=== PATIENT | female | born 1990 | race Caucasian/White ===

== ENCOUNTER 2016-10-18 20:32 | Inpatient (IN) | payer MEDICAID, OTHER ==
[2016-10-18 20:41] VITALS: BMI 50.2
[2016-10-18] MEDS ORDERED: Penicillin G 5 Million Unit Vial IVPB ONE (21:17)
--- NOTE | 2016-10-18 21:33 | OBADHP ---
Datetime: 10/18/2016 21:16 Admit Comment, IP Provider: chief complaint-post term HPI 26 y/o at 40.4 wga here for scehduled induction of labor.patient denies vaginal bleeding, loss of fluid corse complicated by obesity; late to care PMH denies PSH sleeve gastrectomy OBGYN HX Social hx denies tobacco,alcohol or illicit drug use Exam see exam section A/P 26 y/o at 40.4 wga here for scheduled indcution of labor -admit -see orders -cervidil placed dr roper aware Pelvic Type - PN: Adequate Extremities - PN: Normal Abdomen - PN: Normal Back - PN: Normal Breast - PN: Normal Lungs - PN: Normal Heart - PN: Normal Neurologic - PN: Normal HEENT - PN: Normal General - PN: Normal Weight - Estimated: 3400 Presentation-Admit: Vertex Contraction Comments Provider: none Gestation - Est Wks by US: 40.4 IP Hx Assessment: The History has been Reviewed and is Current Vital Signs Provider: Reviewed; Within Normal Limits IP Chief Complaint: Scheduled induction of labor FHR Category Provider Fetus A: Category I Dilatation, Provider: 0 Effacement, Provider: 40 Station, Provider: -3 Genitourinary Exam: Normal DTRs - PN: Normal EGA AdmitDate IP: 40.4 IP Adm Impression: Postterm, intrauterine ; No Active Labor IP Admit Plan: Admit to unit; Initiate labor induction protocol
[2016-10-18] MEDS: Lactated Ringer's 1,000 ML IV SCH (21:50)
[2016-10-18 21:56] LABS: BASO # 0.1 K/uL (0.0-0.2); BASO % 0.4 % (0.0-2.0); EOS # 0.3 K/uL (0.0-0.7); EOS % 2.2 % (0.0-4.0); HEMATOCRIT 30.9 % (34.0-47.0); LYMPH # 3.3 K/uL (1.0-4.3); LYMPH % 21.1 % (20.0-40.0); MEAN CELL VOLUME 77.7 fL (81.0-99.0); MEAN CORPUSCULAR HEMOGLOBIN 25.4 pg (27.0-31.0); MEAN CORPUSCULAR HGB CONC 32.6 g/dL (33.0-37.0); MEAN PLATELET VOLUME 8.4 fL (7.2-11.7); MONO % 6.1 % (0.0-10.0); RED CELL DISTRIBUTION WIDTH 14.9 % (11.5-14.5); WHITE BLOOD COUNT 15.9 K/uL (4.8-10.8)
[2016-10-18 22:04] LABS: CHLORIDE 102 mmol/L (98-107); SODIUM 133 mmol/L (132-148)
[2016-10-18 22:05] LABS: POTASSIUM 3.7 mmol/L (3.6-5.2)
[2016-10-18 22:06] LABS: RBC URINE 15 /hpf (0-3); URINE BILIRUBIN NEGATIVE (NEGATIVE); URINE BLOOD 1+ (NEGATIVE); URINE CALCIUM OXALATE CRYSTALS MANY /hpf (<OCC); URINE COLOR Yellow (YELLOW); URINE GLUCOSE (UA) NORMAL (Normal); URINE KETONE NEGATIVE (NEGATIVE); URINE LEUKOCYTE ESTERASE 2+ Leu/uL (Negative); URINE PROTEIN NEGATIVE (NEGATIVE); URINE UROBILINOGEN NORMAL mg/dL (0.2-1.0); WBC URINE 27 /hpf (0-5)
[2016-10-18 22:07] LABS: ALB/GLOB RATIO 0.8 (1.0-2.1); ALKALINE PHOSPHATASE 120 U/L (38-126); ALT/SGPT 37 U/L (9-52); AST/SGOT 24 U/L (14-36); BLOOD UREA NITROGEN 13 mg/dL (7-17); CARBON DIOXIDE 22 mmol/L (22-30); GFR AFRICAN-AMERICAN > 60; GLUCOSE,RANDOM 89 mg/dL (65-105); TOTAL PROTEIN 7.2 g/dL (6.3-8.3)
[2016-10-18 22:08] LABS: CALCIUM 8.9 mg/dl (8.6-10.4)
[2016-10-19] MEDS ORDERED: Nalbuphine 20 mg/ml Inj (1 ml) ONE ×2 (03:00→09:28)
[2016-10-19] MEDS ORDERED: Nalbuphine 20 mg/ml Inj (1 ml) IVP PRN ×2 (03:30→09:00)
--- NOTE | 2016-10-19 13:13 | OBPN ---
Datetime: 10/19/2016 13:06 IP Progress Impression: Normal progression of labor; Reassuring heart rate IP Procedures: Sterile Vag Exam IP Progress Plan: Cervical Ripening Membranes, Provider: Intact Contraction Comments Provider: irregular FHR - Baseline A Provider: 130 Gestation - Est Wks by US: 40.5 Presentation-Admit: Vertex IP Progress Note Comment: IUP at 40.5wks Reassuring heart Tracing Rate. Plan: Continue present management. NICHD Accel Fetus A IP Provider: 15X15 FHR Category Provider Fetus A: Category I NICHD Variability Prov Fetus A: Moderate 6-25bpm Dilatation, Provider: 1-2 Effacement, Provider: 40-50 Station, Provider: -3 NICHD Decel Fetus A IP Provider: None Datetime: 10/19/2016 08:39 Vital Signs Provider: Reviewed Datetime: 10/18/2016 21:16 Weight - Estimated: 3400
[2016-10-19] MEDS ORDERED: Bupivacaine 0.125%/FentaNYL 200 ML EPI ONE (14:56)
[2016-10-19] MEDS ORDERED: Bupivacaine HCl 0.25% PF (10 ml) Inj ONE (15:26)
--- NOTE | 2016-10-19 20:39 | OBPN ---
Datetime: 10/19/2016 10:50 IP Procedures: Sterile Vag Exam IP Progress Plan: Cervical Ripening; Anticipate Vaginal Delivery Contraction Comments Provider: 5-6 FHR - Baseline A Provider: 120 IP Progress Note Comment: Cytotec 25 micrograms placed in psterior vaginal vault Assessment: 26 yo P0, 40w 5d, IOL. s/P cervidil x 1. Category 1 tracing. Patient is S/P IV pain me ds 1 hour prior. clincally stable. Plan: 1) continue presnet management 2) anticipate vaginal delivery - as per Dr. Liliana JASMINE Accel Fetus A IP Provider: 10X10 FHR Category Provider Fetus A: Category I Dilatation, Provider: 1 Effacement, Provider: 50 Station, Provider: -3 MITALI Decel Fetus A IP Provider: None
--- NOTE | 2016-10-19 23:32 | OBPN ---
Datetime: 10/19/2016 23:24 IP Progress Impression: Normal progression of labor IP Progress Plan: Cervical Ripening; Anticipate Vaginal Delivery Contraction Comments Provider: 7-8 minutes FHR - Baseline A Provider: 125 Gestation - Est Wks by US: 40w 5d Presentation-Admit: Vertex IP Progress Note Comment: Patient receivd in LDR#4 - "I don't feel anything"; S/P epidural. (+) FM V.E.: as above. Cervidil placed in posterior vaginal vault Assessment: 26 yo P0, 40w 5d, IOL. S/P cervidil, then cytotec vaginal and oral; now with repeat ce rvidil. Patient has made some cerivcal progress - cervix is now anterior - prolonged latent phase o f labor. Category 1 traicng. Clinicaly stable. GBS (+) Plan: 1) As above 2) penicillin when in acive labor. 3) Anticipate vaginal delivery - will inform Dr. Liliana JASMINE Accel Fetus A IP Provider: 15X15 FHR Category Provider Fetus A: Category I NICHTab Variability Prov Fetus A: Moderate 6-25bpm Dilatation, Provider: 2 Effacement, Provider: 50 Station, Provider: -3 NICHD Decel Fetus A IP Provider: None
[2016-10-20] MEDS ORDERED: Bupivacaine 0.125%/FentaNYL 200 ML EPI ONE (07:12)
[2016-10-20] MEDS ORDERED: Penicillin G 5 Million Unit Vial IVPB ONE (08:12)
--- NOTE | 2016-10-20 08:31 | OBPN ---
Datetime: 10/20/2016 08:10 IP Progress Impression: Normal progression of labor; Reassuring heart rate IP Procedures: Sterile Vag Exam IP Progress Plan: Augmentation Membranes, Provider: Intact Contraction Comments Provider: Q 3-5 FHR - Baseline A Provider: 130 Gestation - Est Wks by US: 40.6 Presentation-Admit: Vertex IP Progress Note Comment: IUP at 40.6wks in Labor Reassuring Heart tracing Plan: Augmentation with pitocin Monitor progress of labor. NICHD Accel Fetus A IP Provider: 15X15 FHR Category Provider Fetus A: Category I NICHD Variability Prov Fetus A: Moderate 6-25bpm Dilatation, Provider: 3-4 Effacement, Provider: 70 NICHD Decel Fetus A IP Provider: None
[2016-10-20] MEDS ORDERED: Oxytocin 30 UNIT 30 UNITS/500 ML BAG IV SCH (08:45)
[2016-10-20] MEDS ORDERED: Oxytocin 30 UNIT 30 UNITS/500 ML BAG IV ONE (09:21)
[2016-10-20] MEDS: Lactated Ringer's 1,000 ML IV SCH (14:03)
--- NOTE | 2016-10-20 17:26 | OBPN ---
Datetime: 10/20/2016 16:01 IP Progress Impression: Normal progression of labor; Reassuring heart rate IP Procedures: Sterile Vag Exam IP Progress Plan: Continue present management; Augmentation Membranes, Provider: Intact FHR - Baseline A Provider: 120s Gestation - Est Wks by US: 40.6 Presentation-Admit: Vertex IP Progress Note Comment: IUP at 40.6, Active labor On pitocin for augmentation of labor. Plan: continue management. NICHD Accel Fetus A IP Provider: 15X15 FHR Category Provider Fetus A: Category I NICHD Variability Prov Fetus A: Moderate 6-25bpm Dilatation, Provider: 4 Effacement, Provider: 90 Station, Provider: -3 NICHD Decel Fetus A IP Provider: None
[2016-10-20] MEDS ORDERED: Oxytocin 20 units in LR 2,000 ML IV ONE (18:20)
[2016-10-20] MEDS ORDERED: Sodium Citrate/Citric Acid 15 ml Sol ONE (18:21)
[2016-10-20] MEDS ORDERED: cefOXitin IV 2 gm in Dextrose 2 GM/50 ML BAG IVPB ONE ×2 (18:21→19:00)
--- NOTE | 2016-10-20 18:27 | OBPN ---
Datetime: 10/20/2016 18:14 IP Progress Impression: Arrest of dilatation/descent; Reassuring heart rate IP Informed Consent Obtain: Section Delivery IP Procedures: Sterile Vag Exam IP Progress Plan: Deliver- Section Membranes, Provider: Ruptured Contraction Comments Provider: Q 2-3 FHR - Baseline A Provider: 135 Gestation - Est Wks by US: 40.6 Presentation-Admit: Vertex IP Progress Note Comment: IUP at 40.6wks in Labor. Arrest of cervical dilatation at 4cm Assessment: IUP at 40.6wks in labor Maternal obesity. Lack of progress despite adequate contractions with pitocin. Plan: Delivery discussed with Patient. The risks and benifits as well as alternatives were disc ussed. Risks including but not restricted to infection, bleeding, injury to vital organs like the teresa dder, bowels, major bladder and possibility of thrombotic events were discussed. Pt had her questions answered and a consent obtained. Plan: NPO Mefixin 2gms sequential compression devices Oncall to the OR. Vital Signs Provider: Reviewed NICHD Accel Fetus A IP Provider: 15X15 FHR Category Provider Fetus A: Category I NICHD Variability Prov Fetus A: Moderate 6-25bpm Dilatation, Provider: 4 Effacement, Provider: 50 Station, Provider: -2 NICHD Decel Fetus A IP Provider: None
[2016-10-20] MEDS ORDERED: Oxytocin 10 Units/ml Inj ONE (18:44)
[2016-10-20] MEDS ORDERED: Sodium Citrate/Citric Acid 15 ml Sol PO ONE (18:45)
[2016-10-20] MEDS ORDERED: Phenylephrine 10 mg/ml Inj ONE (20:09)
[2016-10-20] MEDS ORDERED: Lidocaine 2% MPF (5 ml) Inj ONE (20:34)
[2016-10-20] MEDS ORDERED: Midazolam 2 MG/2 ML VIAL ONE (20:43)
[2016-10-20] MEDS ORDERED: Propofol 10 mg/ml Inj (20 ML) ONE (20:43)
--- NOTE | 2016-10-20 21:25 | OBDS ---
DELIVERY PERSONNEL Nurse Speech Therapist Certified: N/A Delivery Doctor: Yarely Ford MD Scrub Nurse: ST BELLA Deep Submergence Vehicle Operator: Reyna Morgan RN Anesthesiologist: DR BEAVERS Molder Feeder: SAME Resident: N/A MATERNAL INFORMATION Delivery Anesthesia: Epidural Medications in Delivery: PITOCIN 20 UNITS IN 1L LR Placenta Cultured: No Maternal Complications: Prolonged Labor > 20 Hrs Provider Comments: uncomplicated delivery of a viable male infant delivered in the right oc cipitoposterior position with loose cord around neck X2. scores of 9 and 9. LABOR SUMMARY EDC: 10/14/2016 00:00 No. Babies in Womb: 1 Attempted: No Labor Anesthesia: Epidural LABOR INFORMATION Cervical Ripening Agents: Cervidil Oxytocin: Augmentation MEMBRANES Membranes Rupture Method: Spontaneous Amniotic Fluid Color: Clear Amniotic Fluid Amount: Small Amniotic Fluid Odor: Normal STAGES OF LABOR Stage 3 hrs: 0 Stage 3 min: 1 CSECTION DELIVERY Primary Indication: Secondary Arrest of Dilatation CSection Incision: Lower Uterine Transverse Uterine Closure: Double-layer closure BABY A INFORMATION Infant Delivery Date/Time: 10/20/2016 19:58 Method of Delivery: Born in Route : No : N/A Forceps: N/A Vacuum Extraction: N/A Shoulder Dystocia : No SHOULDER DYSTOCIA BABY A Delivery Date/Time: 10/20/2016 19:58 PRESENTATION/POSITION BABY A Presentation: Cephalic Cephalic Presentation: Vertex Breech Presentation: N/A PLACENTA INFORMATION BABY A Placenta Delivery Time : 10/20/2016 19:59 Placenta Method of Delivery: Manual Removal Placenta Status: Delivered SCORES BABY A Heart Rate 1 min: >100 bpm Resp Effort 1 min: Good Cry Reflex Irritability 1 min: Cough or Sneeze or Pulls Away Muscle Tone 1 min: Active Motion Color 1 min: Body [place], Extremities Blue Resuscitation Effort 1 min: Tactile Stimulation SCORE 1 MIN: 9 Heart Rate 5 min: >100 bpm Resp Effort 5 min: Good Cry Reflex Irritability 5 min: Cough or Sneeze or Pulls Away Muscle Tone 5 min: Active Motion Color 5 min: Body [place], Extremities Blue SCORE 5 MIN: 9 INFORMATION BABY A Gestational Age at Delivery: 40.6 Gestational Status: Term Infant Outcome : Liveborn Condition : Stable Sex: Male IDENTIFICATION/MEDS BABY A ID Band Number: [id number] ID Band Location: Left Leg; Left Arm Sensor Applied: Yes Sensor Number: [id number] Sensor Location : Cord Clamp WEIGHT/LENGTH BABY A Infant Birthweight (gms): 3710 Infant Weight (lb): 8 Weight (oz): 3 Infant Length Inches: 20.75 Infant Length cms: 52.7 CORD INFORMATION BABY A Nuchal Cord : Around Neck x2, Loose ASSESSMENT BABY A Complications: None Physical Findings at Delivery: Within Normal Limits Respirations: Appears Normal Certified Orthoptist/ALS Called : No Infant Care By: /SATHYA MARC Transferred To: [facility]
--- NOTE | 2016-10-20 21:39 | PCM.SURG1 ---
Surgeon's Initial Post Op Note - Surgeon's Notes Surgeon: Dr Ford Child And Adolescent Therapist: Dr Chase Type of Anesthesia: Block Regional Anesthesia Administered By: Dr Sweeney Pre-Operative Diagnosis: IUP at 40.6wks, Arrest of cervical dilatation Operative Findings: Live male infant delivered in the Right occipitoposterior position with loose nuchal cord X2, BW 8Ibs 3 oz and scores of 9 and 9. Clear amniotic fluid. The uterus and ovaries appeared normal. The fallopian tubes on both sides appeared normal but there were a right 2X2 X1.5cm and a 3.5X2.5X2.0cm left paratubal cysts which were removed and sent for pathology. IV Fluid intake - 2000mls. Urine - 300mls. EBL- 600mls Post-Operative Diagnosis: IUP at 40.6wk in Labor with arrest of cervical dilatation due to occipitoposterior position. Operation Performed: Primary Low Transverse section. Bilateral paratubal cystectomies Specimen/Specimens Removed: Left and Right Paratubal cysts Estimated Blood Loss: EBL {In ML}: 600 Blood Products Given: N/A Post-Op Condition: Good Date of Surgery/Procedure: 10/20/16 Time of Surgery/Procedure: 22:29
--- NOTE | 2016-10-20 23:40 | OP ---
PROCEDURE DATE: 10/20/2016 PREOPERATIVE DIAGNOSES: Intrauterine at 40 weeks and 6 days in labor with arrest of cervical dilatation. POSTOPERATIVE DIAGNOSES: Intrauterine at 40 weeks and 6 days in labor with arrest of cervical dilatation due to occipital posterior position. PROCEDURE DONE: Primary low transverse section performed on 2016. SURGEON: Dr. Ford. INTEGRATION ANALYST: Dr. Chase. Assistance to this procedure was needed for exposure of tissues and help in delivery of the baby. The surveyor's assistant remained with the surgery throughout its entire length. COMPLICATIONS: There were no complications. TYPE OF ANESTHESIA: Epidural anesthesia. ANESTHESIOLOGIST: Anesthesia administered by Dr. Qasim Sweeney. FINDINGS: A live male with weight of 8 pounds and 3 ounces, delivered in cephalic presentation and right occipital posterior position. There was a loose nuchal cord x 2. scores of 9 in the first and fifth minutes respectively. Amniotic fluid was clear. The uterus and the ovaries appeared normal. The fallopian tubes on both sides appeared normal, but there was a right 2 x 2 x 1.5 cm and a left 3.5 x 2.5 x 2.0 cm paratubal cyst, which were removed and sent for pathology. INTRAVENOUS FLUID INTAKE: 2000 mL. ESTIMATED BLOOD LOSS: 600 mL. URINE OUTPUT: 300 mL of clear urine after the procedure. SPECIMEN: Sent for pathology were the left and right paratubal cyst. There were no complications. DESCRIPTION OF PROCEDURE: After obtaining informed consent, the patient was sent to the OR and placed in the supine position on the OR table after topping up the epidural anesthesia which was placed earlier on in the day. The patient was then prepped and draped in a sterile fashion and after assessing adequacy of epidural anesthesia. A Pfannenstiel skin incision was made using a scalpel and this incision was sent through the subcutaneous tissue so the rectus fascia was identified. A transverse incision was made in the rectus fascia and this was extended to both sides by means of Mustafa scissors. The rectus fascia was lifted off the underlying rectus muscles both superiorly and inferiorly by means of a blunt dissection and sharp dissection. The rectus muscle was in the midline to expose the peritoneum, which was tented between 2 Mildred clamps and sharply entered and with good visualization of the bladder. Once the abdominal cavity was entered, the above findings were noted. The vesicouterine fold of peritoneum was identified, incised in a transverse fashion and retracted inferiorly to expose the lower uterine segment. A low transverse incision was made using a scalpel and this incision was made through the myometrial layers so the amniotic membranes were seen. This incision was extended to both sides by means of a blunt dissection. Amniotic membranes were ruptured with pickup forceps. The baby at this point was noted to be in the right occipital posterior position with a loose cord around neck x 2. The amniotic fluid was clear. The baby was delivered, and both mouth and nostrils were bulb suctioned. The 3 vessel cord was clamped and cut, and the baby was given to the nurse. Baby cried immediately after . Umbilical cord blood was obtained for analysis and the placenta was manually removed from the uterine cavity. The uterus was then brought out of the abdominal cavity and then the uterine cavity cleaned of all debris using dry laparotomy pads. The uterine incision was then clamped using T clamps and was later repaired using Vicryl #0; the first layer in a running locked fashion and the second layer in a running fashion and imbricating the first layer. Once hemostasis was noted at this incisional site, attention was turned to both paratubal cysts. The left paratubal cyst was identified, held with a Hartwick forceps and the posterior leaf of the broad ligament covering this paratubal cyst was incised with a Bovie device. This was incised to the wall off the cyst itself. The cyst was then shelled out of that area. Once it was taken out, hemostasis was performed using a Bovie device and the defect in the broad ligament was repaired using #4-0 Biosyn. The same procedure was performed on the right paratubal cyst and this was taken and sent for histopathology. Once hemostasis at all repair sites had been noted, irrigation of the pelvis was done with warm saline, after returning the uterus into the abdominal cavity. Attention was turned to the anterior abdominal wall after removing all sponges and instruments from the abdomen. The anterior abdominal wall was closed in layers with 2-0 Vicryl for the peritoneum and the rectus muscles. The rectus fascia was reapproximated using Vicryl #0. The subcutaneous tissue was brought together using #2-0 plain Catgut. The skin was closed in a subcuticular fashion using #4-0 Biosyn. All counts of instruments, laparotomy pads, and needles used were correct x 3 and the patient was sent to the recovery room awake and in stable condition. Rajiv Ford MD cc: [id number] TT: 10/20/2016 23:39:45 mn DWAYNE
[2016-10-21] MEDS: Oxycodone/Acetaminophen 5/325 mg Tab PO PRN ×5 (02:33→21:22)
[2016-10-21] MEDS: Lactated Ringer's 1,000 ML IV SCH (06:50)
[2016-10-21 07:54] LABS: BASO % 0.3 % (0.0-2.0); EOS # 0.1 K/uL (0.0-0.7); EOS % 0.4 % (0.0-4.0); HEMATOCRIT 27.5 % (34.0-47.0); LYMPH % 13.6 % (20.0-40.0); MEAN CORPUSCULAR HEMOGLOBIN 25.8 pg (27.0-31.0); MEAN CORPUSCULAR HGB CONC 33.1 g/dL (33.0-37.0); MEAN PLATELET VOLUME 8.4 fL (7.2-11.7); MONO # 0.7 K/uL (0.0-0.8); MONO % 4.7 % (0.0-10.0); RED CELL DISTRIBUTION WIDTH 14.6 % (11.5-14.5); WHITE BLOOD COUNT 14.7 K/uL (4.8-10.8)
--- NOTE | 2016-10-21 09:04 | OBPPN ---
Datetime: 10/21/2016 08:58 PP Pain Prov: Within normal limits PP Nausea Prov: Denies PP Flatus Prov: Yes PP Breasts Prov: Normal PP Heart Prov: Normal PP Lungs Prov: Normal PP Abdomen/Uterus Prov: Normal PP Lochia Prov: Normal PP Vulva/Perineum Prov: Normal PP CVA Tenderness Prov: Normal PP Extremities Prov: Normal PP C/S Incision Prov: Normal PP Progress Prov: Normal PP Comments Phys Exam Prov: Abd: Soft, NT, BS- present. UT: Firm Incision: Clean and dry. PP Impression Prov: Normal progression PP Plan Prov: Continue present management PP Progress Note Prov: S/P Primary Section, POD #1 Clinically Stable. Plan: Continue care. Vital Signs Provider PP: Reviewed
[2016-10-21] MEDS: Enoxaparin 40 mg Syringe SC SCH (10:28)
[2016-10-22 00:13] VITALS: RESP 20
[2016-10-22] MEDS: Oxycodone/Acetaminophen 5/325 mg Tab PO PRN ×3 (02:48→22:57)
[2016-10-22] MEDS: Enoxaparin 40 mg Syringe SC SCH (09:35)
[2016-10-22 16:30] VITALS: O2SAT 97
--- NOTE | 2016-10-22 22:57 | OBPPN ---
Datetime: 10/22/2016 07:52 PP Pain Prov: Within normal limits PP Nausea Prov: Denies PP Flatus Prov: Yes PP Breasts Prov: Normal PP Heart Prov: Normal PP Lungs Prov: Normal PP Abdomen/Uterus Prov: Normal PP Lochia Prov: Normal PP Vulva/Perineum Prov: Normal PP CVA Tenderness Prov: Normal PP Extremities Prov: Normal PP C/S Incision Prov: Normal PP Progress Prov: Normal PP Comments Phys Exam Prov: Abd: Soft, NT, BS - present Ut- Firm Incision: Clean and dry PP Impression Prov: Normal progression PP Progress Note Prov: S/P Primary Section, POD #2 Clinically Stable. Plan: Encourage ambulation Continue care.
[2016-10-23 00:13] VITALS: BP 117/79; PULSE 83; TEMP 98
[2016-10-23] MEDS: Oxycodone/Acetaminophen 5/325 mg Tab PO PRN (10:02)
[2016-10-23] MEDS: Enoxaparin 40 mg Syringe SC SCH (10:02)
--- NOTE | 2016-10-23 11:00 | OBPPN ---
Datetime: 10/23/2016 08:17 PP Pain Prov: Within normal limits PP Nausea Prov: Denies PP Flatus Prov: Yes PP Breasts Prov: Normal PP Heart Prov: Normal PP Lungs Prov: Normal PP Abdomen/Uterus Prov: Normal PP Lochia Prov: Normal PP Vulva/Perineum Prov: Normal PP CVA Tenderness Prov: Normal PP Extremities Prov: Normal PP C/S Incision Prov: Normal PP Progress Prov: Normal PP Comments Phys Exam Prov: Abd: Soft, NT,BS- present UT: Firm Incision: Clean and dry PP Impression Prov: Normal progression PP Plan Prov: Discharge PP Progress Note Prov: S/P Primary Section, POD#3 Clinically Stable. Plan: Discharge Home. Vital Signs Provider PP: Reviewed
--- NOTE | 2016-10-23 11:03 | OBDCSUM ---
Datetime: 10/23/2016 08:20 Discharged to, Provider: Home Follow up at, Provider: Dr Ford Disch Instr Activity: Normal activity Disch Instr Diet: Regular Discharge Instructions, Provider: Routine instructions given Discharge Diagnosis, Provider: Term Delivered Discharge Time: 10/23/2016 10:45 Follow up in weeks, Provider: 2 weeks Disch Referrals: None Contraception discussed, Prov: Yes Discharge Comment, Provider: S/P Uncomplicated Section, Clinically Stable Discharge Diagnosis Prov Other: S/P Uncomplicated Section, Clinically Stable
== END 2016-10-23 13:50 | disposition home or self-care (01) | DRG 371 ==
LOC: C.EROB 20:32 → C.4D 21:10 → C.4M 10-20 23:27
PROVIDERS: ADMIT Obstetrics & Gynecology; ATTEND Obstetrics & Gynecology
PROC: 10D00Z1 Extraction of Products of Conception, Low, Open Approach (ICD-10-PCS; principal; 2016-10-20)
PROC: 0UB70ZZ Excision of Bilateral Fallopian Tubes, Open Approach (ICD-10-PCS; 2016-10-20)
DX: O69.81X0 Labor and delivery complicated by cord around neck, without compression, not applicable or unspecified (principal); O63.9 Long labor, unspecified; Z68.43 Body mass index [BMI] 50.0-59.9, adult; E66.01 Morbid (severe) obesity due to excess calories; N83.8 Other noninflammatory disorders of ovary, fallopian tube and broad ligament; O48.0 Post-term pregnancy; Z3A.40 40 weeks gestation of pregnancy; O99.824 Streptococcus B carrier state complicating childbirth; O99.214 Obesity complicating childbirth; Z37.0 Single live birth